=== PATIENT | male | born 1965 | race Caucasian/White ===

== ENCOUNTER → 2021-10-26 | Outpatient (CLI) | payer MEDICARE | LOC: CT 14:12 | DX: E11.51 Type 2 diabetes mellitus with diabetic peripheral angiopathy without gangrene (principal); I70.213 Atherosclerosis of native arteries of extremities with intermittent claudication, bilateral legs; I74.5 Embolism and thrombosis of iliac artery | CPT/HCPCS: 36415; 75635; 82565; 84520; Q9967 ==